=== PATIENT | female | born 2000 | race Caucasian/White ===

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

== ENCOUNTER 2020-12-01 16:12 | Emergency (ER) | payer MEDICAID ==
[2020-12-01 18:01] VITALS: BP 112/61
== END 2020-12-01 20:43 | disposition left against medical advice (07) ==
LOC: ED 16:12
DX: O26.891 Other specified pregnancy related conditions, first trimester (principal); Z3A.12 12 weeks gestation of pregnancy; Z53.21 Procedure and treatment not carried out due to patient leaving prior to being seen by health care provider

== ENCOUNTER 2021-02-16 19:50 | Outpatient (CLI) | payer MEDICAID ==
[2021-02-16 21:33] LABS: Bilirubin,Urine NEG (Negative); Blood,Urine NEG (Negative); Color,Urine Yellow (Yellow); Mucus,Urine FEW /HPF; Protein,Urine <15 mg/dL mg/dL (Negative); Urobilinogen,Urine < 2.0 mg/dL (<2.0)
[2021-02-16] MEDS ORDERED: ONDANSETRON 4 MG/2 ML INJ IV ONE (21:53)
[2021-02-16] MEDS ORDERED: ALUM-MAG HYDROXIDE-SIMETHICONE 200-200-20MG/5ML ORAL LIQD 30 ML PO PRN (21:53)
[2021-02-16] MEDS ORDERED: LACTATED RINGERS 500 ML IV ONE (21:54)
--- NOTE | 2021-02-16 22:24 | Ultrasound Report ---
ULTRASOUND OBSTETRIC LIMITED INDICATION / CLINICAL INFORMATION: CHECK PLACENTA. Clinical Gestational Age (GA) in weeks, days: 23 weeks 0 days TECHNIQUE: Transabdominal. COMPARISON: None available. FINDINGS: PRESENTATION: Breech. ADDITIONAL FINDINGS: Grade 1 placenta. Posterior placenta. No evidence of abruption. BREATHING MOVEMENT = 2 GROSS BODY MOVEMENT = 2 TONE = 2 QUALITATIVE AMNIOTIC FLUID VOLUME = 2 TOTAL BIOPHYSICAL SCORE = 8/8 HEART RATE (beats per minute): 159 IMPRESSION: 1. Biophysical Score = 8/8 2. No evidence of placental abruption. 3. Breech position. Signer Name: Vic Alicea MD Signed: 02/16/2021 10:20 PM Workstation Name: [id number]
[2021-02-17 08:00] VITALS: BP 127/74
== END 2021-02-16 23:24 | disposition home or self-care (01) ==
LOC: SPVWC 19:50 → APU 19:51 → SPVWC 23:24
PROVIDERS: ATTEND Obstetrics & Gynecology
DX: Z34.92 Encounter for supervision of normal pregnancy, unspecified, second trimester (principal); Z3A.23 23 weeks gestation of pregnancy
CPT/HCPCS: 59025; 76815; 76819; 81001; 96360; J2405; J7120; J3490

== ENCOUNTER 2021-05-11 13:43 | Outpatient (CLI) | payer MEDICAID ==
[2021-05-11 14:26] VITALS: BP 97/63
[2021-05-11] MEDS ORDERED: LACTATED RINGERS 500 ML IV ONE (19:07)
--- NOTE | 2021-05-12 06:48 | Ultrasound Report ---
OB ultrasound Biophysical profile INDICATION: well-being FINDINGS: Biophysical profile measures 8 out of 8. heart rate 142 bpm. TOMÁS measures 7.3 cm. Sin gle live intrauterine in cephalic position. IMPRESSION: Single live intrauterine in cephalic position. Normal biophysical profile. TOMÁS measures 7.3 cm. Signer Name: Juan Miguel Araiza MD Signed: 05/12/2021 6:44 AM Workstation Name: [id number]
== END 2021-05-11 18:15 | disposition home or self-care (01) ==
LOC: TRG 13:43 → APU 13:44 → TRG 18:15
PROVIDERS: ATTEND Obstetrics & Gynecology
DX: Z34.93 Encounter for supervision of normal pregnancy, unspecified, third trimester (principal); Z3A.35 35 weeks gestation of pregnancy
CPT/HCPCS: 36415; 59025; 76815; 76819; 84112

== ENCOUNTER 2021-06-07 20:03 | Outpatient (CLI) | payer MEDICAID ==
[2021-06-07 22:18] LABS: Bacteria,Urine 2+ /HPF (Negative); Bilirubin,Urine NEG (Negative); Blood,Urine NEG (Negative); Color,Urine Yellow (Yellow); Protein,Urine <15 mg/dL mg/dL (Negative); Urobilinogen,Urine < 2.0 mg/dL (<2.0)
[2021-06-07 23:03] VITALS: BP 108/72
== END 2021-06-07 22:43 | disposition home or self-care (01) ==
LOC: TRG 20:03 → APU 20:04 → TRG 22:43
PROVIDERS: ATTEND Obstetrics & Gynecology
DX: Z34.93 Encounter for supervision of normal pregnancy, unspecified, third trimester (principal); Z3A.38 38 weeks gestation of pregnancy
CPT/HCPCS: 59025; 81001

== ENCOUNTER 2021-06-15 11:22 | Inpatient (IN) | payer MEDICAID ==
[2021-06-15] MEDS: LACTATED RINGERS 1,000 ML IV SCH ×3 (13:54→23:15)
[2021-06-15] MEDS ORDERED: ePHEDrine SULFATE 50 MG/1 ML INJ IV PRN ×2 (14:00→23:00)
[2021-06-15] MEDS ORDERED: BUTORPHANOL 2 MG/1 ML INJ IV PRN ×2 (14:00)
[2021-06-15] MEDS ORDERED: LIDOCAINE (2%) 20 MG/1 ML VIAL 20 ML MDV INFILTRATI NR (14:00)
[2021-06-15] MEDS ORDERED: fentaNYL 100 MCG/2 ML INJ IV PRN (14:00)
[2021-06-15] MEDS ORDERED: ACETAMINOPHEN 325 MG TAB PO PRN (14:00)
[2021-06-15] MEDS ORDERED: OXYTOCIN DRIP 30 UNITS/500 ML BAG IV SCH ×2 (14:00)
--- NOTE | 2021-06-15 14:04 | History and Physical Report ---
History of Present Illness Date of examination: 06/15/21 Date of admission: 06/15/2021 Chief complaint: Presents for induction of labor due to having BPP of 4/8 at office today. History of present illness: Early entry to care; 1st trimester complicated by +Chlamydia (treated and DARWIN is Negative), Vitamin D Deficiency (PO supplementation); 2nd trimester complicated by UTI (treated with Macrobid); and HAs (Tylenol); 3rd trimester complicated by HAs (Fioricet), and fatigue. 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 Family/Genetic History: diabetes (Mother MGF), hypertension (Mother, MGM, PGM, Aunt) Social history: no significant social history, single - Obstetrical History Expected Date of Delivery: 06/15/21 Actual Gestation: 40 Week(s) 0 Day(s) : 2 Para: 1 Hx # Term Pregnancies: 1 Number of Living Children: 1 #1 Infant Gender: Female year: Birthweight: 3.402 kg Method of Delivery: Vaginal Gestational age at delivery: 41 Complications: none Medications and Allergies Allergies Allergy/AdvReac Type Severity Reaction Status Date / Time No Known Allergies Allergy Verified 06/05/17 21:50 Home Medications Medication Instructions Recorded Confirmed Last Taken Type Hyoscyamine Subl [Levsin Sl] 0.125 mg SL Q4HR PRN #5 tablet 06/04/14 08/06/17 Unknown Rx Ondansetron [Zofran Odt] 4 mg PO Q4H #7 tab.rapdis 06/04/14 08/06/17 Unknown Rx Active Meds: Active Medications Lactated Ringer's (Lactated Ringers) 1,000 mls @ 125 mls/hr IV DIRECT STEPHEN Last Admin: 06/15/21 13:54 Dose: 125 mls/hr Review of Systems All systems: negative - Vital Signs Vital signs: Vital Signs Pulse BP Pulse Ox 89 113/69 97 06/15/21 11:42 06/15/21 11:42 06/15/21 11:42 Temp Pulse Resp BP Pulse Ox 97.9 F 75 113/69 98 06/15/21 11:54 06/15/21 13:56 06/15/21 11:42 06/15/21 13:56 - Physical Exam Breasts: Positive: normal Cardiovascular: Regular rate Lungs: Positive: Clear to auscultation, Normal air movement Abdomen: Positive: normal appearance, soft, normal bowel sounds Genitourinary (Female): Positive: normal external genitalia, normal perenium Vagina: Positive: normal moisture Uterus: Positive: enlarged Anus/Rectum: Positive: normal perianal skin - Obstetrical FHR: category 1 Uterine Contraction Monitor Mode: External Cervical Dilatation: 3 (Vtx; Intact) Cervical Effacement Percentage: 60 station: -3 Uterine Contraction Pattern: Irregular Uterine Tone Measurement Phase: Resting Uterine Contraction Intensity: Mild Results All other labs normal. Assessment and Plan A: IUP @ 40 Weeks Category I Tracing Non-Reassuring Testing (BPP: 07/24) Oligohydramnios Maternal Obesity GBS Negative P: Admit to L&D Per Routine Orders Pitocin Induction
[2021-06-15 14:12] LABS: Hematocrit 39.9 % (30.3-42.9); Hemoglobin 13.3 gm/dl (10.1-14.3); Mean Corpuscular HGB Conc 33 % (30-34); Mean Corpuscular Volume 84 fl (79-97); Platelet Count 282 K/mm3 (140-440); Red Blood Count 4.76 M/mm3 (3.65-5.03); Red Cell Distribution Width 14.9 % (13.2-15.2)
[2021-06-15] MEDS ORDERED: CARBOPROST TROMETHAMINE 250 MCG/1 ML INJ IM PRN (15:00)
[2021-06-15] MEDS ORDERED: OXYTOCIN 10 UNIT/1 ML INJ IM PRN (15:00)
[2021-06-15] MEDS ORDERED: LOPERAMIDE 2 MG CAP PO PRN (15:00)
[2021-06-15] MEDS ORDERED: NALOXONE 0.4 MG/1 ML INJ IV PRN (15:00)
[2021-06-15] MEDS ORDERED: TERBUTALINE 1 MG/1 ML INJ SUB-Q PRN (15:00)
[2021-06-15] MEDS ORDERED: miSOPROStol 200 MCG TAB PR PRN (15:00)
[2021-06-15] MEDS ORDERED: ONDANSETRON 4 MG/2 ML INJ IV PRN (15:00)
[2021-06-15] MEDS ORDERED: MINERAL OIL 30 ML ORAL LIQD PO PRN (22:00)
[2021-06-15] MEDS ORDERED: NALOXONE 2 MG/2 ML INJ IV PRN (23:00)
--- NOTE | 2021-06-15 23:00 | Anesthesia Consultation ---
Anesthesia Consult and Med Hx Date of service: 06/15/21 - Airway Anesthetic Teeth Evaluation: Good ROM Head & Neck: Adequate Mental/Hyoid Distance: Adequate Mallampati Class: Class II Intubation Access Assessment: Probably Good - Pulmonary Exam CTA: Yes - Cardiac Exam Cardiac Exam: RRR - Pre-Operative Health Status ASA Pre-Surgery Classification: ASA2 Proposed Anesthetic Plan: Epidural - Pulmonary Hx Asthma: No COPD: No Hx Pneumonia: No - Cardiovascular System Hx Hypertension: No - Central Nervous System Hx Seizures: No Hx Psychiatric Problems: No - Gastrointestinal Hx Gastroesophageal Reflux Disease: No - Endocrine Hx Renal Disease: No Hx End Stage Renal Disease: No Hx Insulin Dependent Diabetes: No Hx Non-Insulin Dependent Diabetes: No Hx Hypothyroidism: No Hx Hyperthyroidism: No - Hematic Hx Anemia: No Hx Sickle Cell Disease: No - Other Systems Hx Alcohol Use: No Hx Substance Use: No Hx Obesity: Yes
--- NOTE | 2021-06-15 23:49 | Progress Note ---
Labor Epidural - Labor Epidural Start Time: 23:25 Stop Time: 23:39 Performed by:: MEDARDO BILLINGSLEY Procedure: Patient is requesting epidural for labor pain. H&P and labs reviewed. Procedure explained, questions answered, consent obtained. Patient placed in sitting position with monitors applied. Timeout performed immediately before start of procedure. Prep/drape in usual sterile fashion. Skin localized 3 mL 1% lidocaine at L[3]-L[4] interspace. 17-gauge Touhy epidural needle advanced to SRAVANI with saline at [8] cm. No blood/CSF noted via epidural needle. Epidural catheter advanced to [12] cm. Negative aspiration for blood and CSF via catheter, negative response to test dose 3 ml 1.5% lidocaine w/ Epi. Sterile dressing applied followed by tape reinforcement. Patient tolerated procedure well. No immediate complications noted.
[2021-06-16] MEDS: fentaNYL-BUPIV 2 MCG/ML-0.125% 200 MCG/100 ML BAG EPIDURAL SCH ×2 (00:33→08:26)
[2021-06-16] MEDS: LACTATED RINGERS 1,000 ML IV SCH ×2 (05:20→07:12)
[2021-06-16] MEDS ORDERED: SODIUM CHLORIDE 0.9% 1000 ML 1,000 ML ONE (06:56)
--- NOTE | 2021-06-16 07:41 | Event Note ---
Date: 06/16/21 CC: IOL HPI: 20 y/o at 40-1/7 weeks undergoing IOL as BPP=4/8 yesterday. Membranes are ruptured. On Pitocin. O: EFM= category 2. TOCO= q 5 min SVE= 5/90%/-2. IUPC and FSE placed. IMP: 1.) 40 weeks 2.) BPP= 4/8 yesterday 3.) IOL PLAN: 1.) Continue Pitocin per protocol. 2.) Rx amnioinfusion.
[2021-06-16] MEDS ORDERED: SODIUM CHLORIDE 0.9% 1000 ML 1,000 ML VG SCH ×2 (08:00)
--- NOTE | 2021-06-16 09:12 | Event Note ---
Date: 06/16/21 Cat 2 racing Amnioinfusion running Oxyocin on hold If no progress or trasing does not improve in one hour will proceed with operative delivery Zackery Green MD
[2021-06-16] MEDS ORDERED: METOCLOPRAMIDE 10 MG/2 ML INJ ONE (10:33)
[2021-06-16] MEDS ORDERED: BICITRA ORAL LIQD 30ML ONE (10:33)
[2021-06-16] MEDS ORDERED: FAMOTIDINE 20 MG/2 ML INJ IV ONE ×2 (10:34→10:43)
[2021-06-16] MEDS ORDERED: ceFAZolin/Water 2 GM/20 ML 2 GM/20 ML SYRINGE IV ONE (10:38)
[2021-06-16] MEDS ORDERED: LIDOCAINE 2%/EPINEPHRINE 1:200,000 VIAL (20 ML) INFILTRATI ONE (10:41)
[2021-06-16] MEDS ORDERED: METOCLOPRAMIDE 10 MG/2 ML INJ IV ONE (10:43)
[2021-06-16] MEDS ORDERED: BICITRA ORAL LIQD 30ML PO ONE (10:43)
--- NOTE | 2021-06-16 10:50 | Progress Note ---
Subjective - Subjective Date of service: 06/16/21 Interval history: 9cm/+ve anterior lip swelling prominent pubic arch +ve caput prolonged active phase proceed with operative delivery Informed consent Zackery Green MD Objective - Vital Signs Vital Signs: Vital Signs - 12hr 06/15/21 06/15/21 06/15/21 22:52 22:57 23:02 Temperature Pulse Rate 63 78 69 Respiratory Rate Blood Pressure Blood Pressure [Left] O2 Sat by Pulse 100 100 99 Oximetry O2 Sat by Pulse Oximetry [ Anterior Bilateral Throughout] 06/15/21 06/15/21 06/15/21 23:07 23:12 23:17 Temperature Pulse Rate 70 65 70 Respiratory Rate Blood Pressure Blood Pressure [Left] O2 Sat by Pulse 99 100 99 Oximetry O2 Sat by Pulse Oximetry [ Anterior Bilateral Throughout] 06/15/21 06/15/21 06/15/21 23:21 23:22 23:23 Temperature Pulse Rate 72 73 80 Respiratory Rate Blood Pressure 138/93 Blood Pressure [Left] O2 Sat by Pulse 100 93 Oximetry O2 Sat by Pulse Oximetry [ Anterior Bilateral Throughout] 06/15/21 06/15/21 06/15/21 23:27 23:32 23:37 Temperature Pulse Rate 69 69 74 Respiratory Rate Blood Pressure 110/74 Blood Pressure [Left] O2 Sat by Pulse 97 100 100 Oximetry O2 Sat by Pulse Oximetry [ Anterior Bilateral Throughout] 06/15/21 06/15/21 06/15/21 23:40 23:42 23:47 Temperature Pulse Rate 67 67 68 Respiratory Rate Blood Pressure 117/80 121/79 Blood Pressure [Left] O2 Sat by Pulse 99 99 Oximetry O2 Sat by Pulse Oximetry [ Anterior Bilateral Throughout] 06/15/21 06/15/21 06/15/21 23:49 23:51 23:52 Temperature Pulse Rate 67 61 65 Respiratory Rate Blood Pressure 109/55 108/59 Blood Pressure [Left] O2 Sat by Pulse 100 Oximetry O2 Sat by Pulse Oximetry [ Anterior Bilateral Throughout] 06/15/21 06/15/21 06/15/21 23:54 23:57 23:58 Temperature Pulse Rate 68 64 63 Respiratory Rate Blood Pressure 116/70 103/57 Blood Pressure [Left] O2 Sat by Pulse 100 Oximetry O2 Sat by Pulse Oximetry [ Anterior Bilateral Throughout] 06/16/21 06/16/21 06/16/21 00:00 00:02 00:03 Temperature Pulse Rate 61 60 62 Respiratory Rate Blood Pressure 105/66 107/70 Blood Pressure [Left] O2 Sat by Pulse 100 Oximetry O2 Sat by Pulse Oximetry [ Anterior Bilateral Throughout] 06/16/21 06/16/21 06/16/21 00:06 00:07 00:09 Temperature Pulse Rate 59 L 60 58 L Respiratory Rate Blood Pressure 104/64 104/70 Blood Pressure [Left] O2 Sat by Pulse 98 Oximetry O2 Sat by Pulse Oximetry [ Anterior Bilateral Throughout] 06/16/21 06/16/21 06/16/21 00:12 00:15 00:17 Temperature Pulse Rate 62 58 L 59 L Respiratory Rate Blood Pressure 104/66 96/62 Blood Pressure [Left] O2 Sat by Pulse 98 98 Oximetry O2 Sat by Pulse Oximetry [ Anterior Bilateral Throughout] 06/16/21 06/16/21 06/16/21 00:18 00:21 00:22 Temperature Pulse Rate 57 L 51 L 55 L Respiratory Rate Blood Pressure 100/67 102/70 Blood Pressure [Left] O2 Sat by Pulse 98 Oximetry O2 Sat by Pulse Oximetry [ Anterior Bilateral Throughout] 06/16/21 06/16/21 06/16/21 00:27 00:32 00:37 Temperature Pulse Rate 55 L 60 57 L Respiratory Rate Blood Pressure Blood Pressure [Left] O2 Sat by Pulse 98 98 99 Oximetry O2 Sat by Pulse Oximetry [ Anterior Bilateral Throughout] 06/16/21 06/16/21 06/16/21 00:42 00:47 00:52 Temperature Pulse Rate 58 L 61 62 Respiratory Rate Blood Pressure Blood Pressure [Left] O2 Sat by Pulse 97 97 97 Oximetry O2 Sat by Pulse Oximetry [ Anterior Bilateral Throughout] 06/16/21 06/16/21 06/16/21 00:53 00:57 01:00 Temperature 97.8 F Pulse Rate 71 65 Respiratory Rate Blood Pressure 97/60 Blood Pressure [Left] O2 Sat by Pulse 99 Oximetry O2 Sat by Pulse Oximetry [ Anterior Bilateral Throughout] 06/16/21 06/16/21 06/16/21 01:02 01:07 01:12 Temperature Pulse Rate 60 63 64 Respiratory Rate Blood Pressure Blood Pressure [Left] O2 Sat by Pulse 97 97 97 Oximetry O2 Sat by Pulse Oximetry [ Anterior Bilateral Throughout] 06/16/21 06/16/21 06/16/21 01:17 01:22 01:27 Temperature Pulse Rate 61 68 65 Respiratory Rate Blood Pressure 99/64 Blood Pressure [Left] O2 Sat by Pulse 98 98 98 Oximetry O2 Sat by Pulse Oximetry [ Anterior Bilateral Throughout] 06/16/21 06/16/21 06/16/21 01:32 01:37 01:42 Temperature Pulse Rate 60 63 65 Respiratory Rate Blood Pressure Blood Pressure [Left] O2 Sat by Pulse 98 98 99 Oximetry O2 Sat by Pulse Oximetry [ Anterior Bilateral Throughout] 06/16/21 06/16/21 06/16/21 01:47 01:52 01:57 Temperature Pulse Rate 63 78 68 Respiratory Rate Blood Pressure 86/51 Blood Pressure [Left] O2 Sat by Pulse 98 99 99 Oximetry O2 Sat by Pulse Oximetry [ Anterior Bilateral Throughout] 06/16/21 06/16/21 06/16/21 02:02 02:07 02:12 Temperature Pulse Rate 73 63 61 Respiratory Rate Blood Pressure Blood Pressure [Left] O2 Sat by Pulse 100 99 99 Oximetry O2 Sat by Pulse Oximetry [ Anterior Bilateral Throughout] 06/16/21 06/16/21 06/16/21 02:17 02:22 02:27 Temperature Pulse Rate 70 63 66 Respiratory Rate Blood Pressure 91/55 Blood Pressure [Left] O2 Sat by Pulse 98 99 99 Oximetry O2 Sat by Pulse Oximetry [ Anterior Bilateral Throughout] 06/16/21 06/16/21 06/16/21 02:32 02:37 02:42 Temperature Pulse Rate 66 68 60 Respiratory Rate Blood Pressure Blood Pressure [Left] O2 Sat by Pulse 99 99 98 Oximetry O2 Sat by Pulse Oximetry [ Anterior Bilateral Throughout] 06/16/21 06/16/21 06/16/21 02:47 02:52 02:53 Temperature Pulse Rate 66 66 67 Respiratory Rate Blood Pressure 83/52 Blood Pressure [Left] O2 Sat by Pulse 98 99 Oximetry O2 Sat by Pulse Oximetry [ Anterior Bilateral Throughout] 06/16/21 06/16/21 06/16/21 02:57 03:02 03:07 Temperature Pulse Rate 73 65 66 Respiratory Rate Blood Pressure 89/55 Blood Pressure [Left] O2 Sat by Pulse 98 99 98 Oximetry O2 Sat by Pulse Oximetry [ Anterior Bilateral Throughout] 06/16/21 06/16/21 06/16/21 03:12 03:17 03:22 Temperature Pulse Rate 75 73 68 Respiratory Rate Blood Pressure Blood Pressure [Left] O2 Sat by Pulse 97 97 97 Oximetry O2 Sat by Pulse Oximetry [ Anterior Bilateral Throughout] 06/16/21 06/16/21 06/16/21 03:23 03:24 03:27 Temperature Pulse Rate 67 88 76 Respiratory Rate Blood Pressure 83/50 88/56 Blood Pressure [Left] O2 Sat by Pulse 98 Oximetry O2 Sat by Pulse Oximetry [ Anterior Bilateral Throughout] 06/16/21 06/16/21 06/16/21 03:32 03:37 03:42 Temperature Pulse Rate 80 68 69 Respiratory Rate Blood Pressure Blood Pressure [Left] O2 Sat by Pulse 98 98 99 Oximetry O2 Sat by Pulse Oximetry [ Anterior Bilateral Throughout] 06/16/21 06/16/21 06/16/21 03:44 03:47 03:52 Temperature Pulse Rate 69 74 67 Respiratory Rate Blood Pressure 92/62 Blood Pressure [Left] O2 Sat by Pulse 99 98 Oximetry O2 Sat by Pulse Oximetry [ Anterior Bilateral Throughout] 06/16/21 06/16/21 06/16/21 03:57 03:58 04:02 Temperature Pulse Rate 70 64 103 H Respiratory Rate Blood Pressure 94/62 Blood Pressure [Left] O2 Sat by Pulse 98 97 Oximetry O2 Sat by Pulse Oximetry [ Anterior Bilateral Throughout] 06/16/21 06/16/21 06/16/21 04:07 04:12 04:13 Temperature Pulse Rate 80 62 58 L Respiratory Rate Blood Pressure 92/64 Blood Pressure [Left] O2 Sat by Pulse 97 98 Oximetry O2 Sat by Pulse Oximetry [ Anterior Bilateral Throughout] 06/16/21 06/16/21 06/16/21 04:17 04:22 04:27 Temperature Pulse Rate 67 61 67 Respiratory Rate Blood Pressure Blood Pressure [Left] O2 Sat by Pulse 99 99 99 Oximetry O2 Sat by Pulse Oximetry [ Anterior Bilateral Throughout] 06/16/21 06/16/21 06/16/21 04:28 04:32 04:37 Temperature Pulse Rate 63 61 61 Respiratory Rate Blood Pressure 100/69 Blood Pressure [Left] O2 Sat by Pulse 99 99 Oximetry O2 Sat by Pulse Oximetry [ Anterior Bilateral Throughout] 06/16/21 06/16/21 06/16/21 04:42 04:43 04:47 Temperature Pulse Rate 67 60 60 Respiratory Rate Blood Pressure 96/66 Blood Pressure [Left] O2 Sat by Pulse 98 99 Oximetry O2 Sat by Pulse Oximetry [ Anterior Bilateral Throughout] 06/16/21 06/16/21 06/16/21 04:52 04:57 04:58 Temperature Pulse Rate 67 65 66 Respiratory Rate Blood Pressure 100/65 Blood Pressure [Left] O2 Sat by Pulse 98 98 Oximetry O2 Sat by Pulse Oximetry [ Anterior Bilateral Throughout] 06/16/21 06/16/21 06/16/21 05:02 05:07 05:12 Temperature Pulse Rate 68 65 77 Respiratory Rate Blood Pressure Blood Pressure [Left] O2 Sat by Pulse 98 98 98 Oximetry O2 Sat by Pulse Oximetry [ Anterior Bilateral Throughout] 06/16/21 06/16/21 06/16/21 05:13 05:17 05:18 Temperature Pulse Rate 75 66 103 H Respiratory Rate Blood Pressure 96/59 Blood Pressure [Left] O2 Sat by Pulse 99 91 Oximetry O2 Sat by Pulse Oximetry [ Anterior Bilateral Throughout] 06/16/21 06/16/21 06/16/21 05:22 05:23 05:27 Temperature 97.7 F Pulse Rate 78 67 Respiratory 18 Rate Blood Pressure Blood Pressure [Left] O2 Sat by Pulse 97 97 99 Oximetry O2 Sat by Pulse Oximetry [ Anterior Bilateral Throughout] 06/16/21 06/16/21 06/16/21 05:28 05:32 05:37 Temperature Pulse Rate 60 77 65 Respiratory Rate Blood Pressure 115/75 Blood Pressure [Left] O2 Sat by Pulse 99 97 Oximetry O2 Sat by Pulse Oximetry [ Anterior Bilateral Throughout] 06/16/21 06/16/21 06/16/21 05:42 05:47 05:52 Temperature Pulse Rate 78 70 71 Respiratory Rate Blood Pressure Blood Pressure [Left] O2 Sat by Pulse 98 98 98 Oximetry O2 Sat by Pulse Oximetry [ Anterior Bilateral Throughout] 06/16/21 06/16/21 06/16/21 05:57 06:02 06:07 Temperature Pulse Rate 70 70 73 Respiratory Rate Blood Pressure Blood Pressure [Left] O2 Sat by Pulse 98 97 98 Oximetry O2 Sat by Pulse Oximetry [ Anterior Bilateral Throughout] 06/16/21 06/16/21 06/16/21 06:12 06:17 06:22 Temperature Pulse Rate 74 86 79 Respiratory Rate Blood Pressure Blood Pressure [Left] O2 Sat by Pulse 98 95 99 Oximetry O2 Sat by Pulse Oximetry [ Anterior Bilateral Throughout] 06/16/21 06/16/21 06/16/21 06:27 06:32 06:37 Temperature Pulse Rate 69 74 76 Respiratory Rate Blood Pressure Blood Pressure [Left] O2 Sat by Pulse 98 97 97 Oximetry O2 Sat by Pulse Oximetry [ Anterior Bilateral Throughout] 06/16/21 06/16/21 06/16/21 06:42 06:47 06:52 Temperature Pulse Rate 82 85 76 Respiratory Rate Blood Pressure 108/76 Blood Pressure [Left] O2 Sat by Pulse 99 97 99 Oximetry O2 Sat by Pulse Oximetry [ Anterior Bilateral Throughout] 06/16/21 06/16/21 06/16/21 06:57 07:02 07:07 Temperature Pulse Rate 82 72 87 Respiratory Rate Blood Pressure Blood Pressure [Left] O2 Sat by Pulse 97 99 97 Oximetry O2 Sat by Pulse Oximetry [ Anterior Bilateral Throughout] 06/16/21 06/16/21 06/16/21 07:12 07:13 07:17 Temperature Pulse Rate 72 70 Respiratory Rate Blood Pressure Blood Pressure [Left] O2 Sat by Pulse 99 98 Oximetry O2 Sat by Pulse 99 Oximetry [ Anterior Bilateral Throughout] 06/16/21 06/16/21 06/16/21 07:18 07:22 07:27 Temperature 98.5 F Pulse Rate 78 78 76 Respiratory 14 Rate Blood Pressure 136/90 Blood Pressure 136/90 [Left] O2 Sat by Pulse 99 98 99 Oximetry O2 Sat by Pulse Oximetry [ Anterior Bilateral Throughout] 06/16/21 06/16/21 06/16/21 07:32 07:37 07:41 Temperature Pulse Rate 71 71 76 Respiratory Rate Blood Pressure 124/83 Blood Pressure [Left] O2 Sat by Pulse 98 99 Oximetry O2 Sat by Pulse Oximetry [ Anterior Bilateral Throughout] 06/16/21 06/16/21 06/16/21 07:42 07:47 07:52 Temperature Pulse Rate 75 75 73 Respiratory Rate Blood Pressure Blood Pressure [Left] O2 Sat by Pulse 98 98 99 Oximetry O2 Sat by Pulse Oximetry [ Anterior Bilateral Throughout] 06/16/21 06/16/21 06/16/21 07:57 08:02 08:07 Temperature Pulse Rate 85 112 H 126 H Respiratory Rate Blood Pressure Blood Pressure [Left] O2 Sat by Pulse 99 96 96 Oximetry O2 Sat by Pulse Oximetry [ Anterior Bilateral Throughout] 06/16/21 06/16/2122 08:12 08:17 08:22 Temperature Pulse Rate 98 H 119 H 143 H Respiratory Rate Blood Pressure Blood Pressure [Left] O2 Sat by Pulse 97 97 98 Oximetry O2 Sat by Pulse Oximetry [ Anterior Bilateral Throughout] 06/16/21 06/16/21 06/16/21 08:27 08:31 08:32 Temperature Pulse Rate 139 H 136 H 123 H Respiratory Rate Blood Pressure Blood Pressure [Left] O2 Sat by Pulse 96 93 96 Oximetry O2 Sat by Pulse Oximetry [ Anterior Bilateral Throughout] 06/16/21 06/16/21 06/16/21 08:37 08:42 08:43 Temperature Pulse Rate 120 H 98 H 93 H Respiratory Rate Blood Pressure 132/74 Blood Pressure [Left] O2 Sat by Pulse 97 97 Oximetry O2 Sat by Pulse Oximetry [ Anterior Bilateral Throughout] 06/16/21 06/16/21 06/16/21 08:47 08:52 08:57 Temperature Pulse Rate 96 H 96 H 95 H Respiratory Rate Blood Pressure Blood Pressure [Left] O2 Sat by Pulse 96 97 96 Oximetry O2 Sat by Pulse Oximetry [ Anterior Bilateral Throughout] 06/16/21 06/16/21 06/16/21 09:02 09:07 09:12 Temperature Pulse Rate 108 H 115 H 106 H Respiratory Rate Blood Pressure Blood Pressure [Left] O2 Sat by Pulse 96 96 98 Oximetry O2 Sat by Pulse Oximetry [ Anterior Bilateral Throughout] 06/16/21 06/16/21 06/16/21 09:17 09:19 09:20 Temperature Pulse Rate 107 H 100 H 97 H Respiratory Rate Blood Pressure 123/72 Blood Pressure [Left] O2 Sat by Pulse 97 94 Oximetry O2 Sat by Pulse Oximetry [ Anterior Bilateral Throughout] 06/16/21 06/16/21 06/16/21 09:22 09:27 09:32 Temperature Pulse Rate 116 H 102 H 103 H Respiratory Rate Blood Pressure Blood Pressure [Left] O2 Sat by Pulse 97 97 96 Oximetry O2 Sat by Pulse Oximetry [ Anterior Bilateral Throughout] 06/16/21 06/16/21 06/16/21 09:37 09:42 09:47 Temperature Pulse Rate 133 H 137 H 135 H Respiratory Rate Blood Pressure Blood Pressure [Left] O2 Sat by Pulse 96 97 97 Oximetry O2 Sat by Pulse Oximetry [ Anterior Bilateral Throughout] 06/16/21 06/16/2122 09:48 09:53 09:58 Temperature Pulse Rate 125 H 133 H 154 H Respiratory Rate Blood Pressure 105/58 Blood Pressure [Left] O2 Sat by Pulse 97 99 Oximetry O2 Sat by Pulse Oximetry [ Anterior Bilateral Throughout] 06/16/21 06/16/21 06/16/21 10:03 10:08 10:13 Temperature Pulse Rate 138 H 119 H 110 H Respiratory Rate Blood Pressure Blood Pressure [Left] O2 Sat by Pulse 99 98 96 Oximetry O2 Sat by Pulse Oximetry [ Anterior Bilateral Throughout] 06/16/21 06/16/21 06/16/21 10:14 10:18 10:19 Temperature Pulse Rate 110 H 112 H 121 H Respiratory Rate Blood Pressure Blood Pressure [Left] O2 Sat by Pulse 92 98 81 L Oximetry O2 Sat by Pulse Oximetry [ Anterior Bilateral Throughout] 06/16/21 06/16/21 06/16/21 10:23 10:28 10:33 Temperature Pulse Rate 131 H 121 H 122 H Respiratory Rate Blood Pressure Blood Pressure [Left] O2 Sat by Pulse 98 99 97 Oximetry O2 Sat by Pulse Oximetry [ Anterior Bilateral Throughout] 06/16/21 06/16/21 10:38 10:43 Temperature Pulse Rate 122 H 118 H Respiratory Rate Blood Pressure Blood Pressure [Left] O2 Sat by Pulse 98 97 Oximetry O2 Sat by Pulse Oximetry [ Anterior Bilateral Throughout] - Labs Labs: Laboratory Results - last 24 hr 06/15/21 06/15/21 13:30 13:30 WBC 7.4 RBC 4.76 Hgb 13.3 Hct 39.9 MCV 84 MCH 28 MCHC 33 RDW 14.9 Plt Count 282 Blood Type A POSITIVE Antibody Screen Negative
[2021-06-16] MEDS ORDERED: ceFAZolin/Water 2 GM/20 ML 2 GM/20 ML SYRINGE IV NR (11:00)
[2021-06-16] MEDS ORDERED: ONDANSETRON 4 MG/2 ML INJ ONE (11:28)
[2021-06-16] MEDS ORDERED: OXYTOCIN 10 UNIT/1 ML INJ ONE (11:32)
[2021-06-16] MEDS ORDERED: dexAMETHasone 20 MG/5 ML VIAL ONE (11:44)
[2021-06-16] MEDS ORDERED: BUPIVACAINE/PF (0.25%) 2.5 MG/ML 30 ML VIAL INFILTRATI ONE ×2 (11:44)
[2021-06-16] MEDS: METHYLERGONOVINE MALEATE 0.2 MG/ML VIAL IM PRN ×2 (11:45→12:30)
[2021-06-16] MEDS ORDERED: LACTATED RINGERS 1,000 ML ONE (11:56)
--- NOTE | 2021-06-16 13:13 | Procedure Note ---
OB Delivery Note - Delivery Date of Delivery: 06/16/21 Surgeon: JULIANNA FERRER Estimated blood loss: other (1500ml) - Section Preop diagnosis: nonreassuring FHR tracing, other (arrest of descent, suspected chorioamnionitis) section procedure: primary low transverse Disposition: PACU Complications: other ( hemorrhage) Narrative: Preop diagnosis: IUP at 40.1 weeks, arrest of descent, suspected chorioamnionitis, nonreassuring heart tracing Postop diagnosis: Same, delivered Procedure: Primary low transverse section via Pfannenstiel incision Surgeon: Dr. Julianna Ferrer Anesthesia spinal Complications hemorrhage EBL 1500ml IV fluids 1900mL Urine output 200 mL, clear Drains Mercado to gravity Findings: Viable female with weight 2680gms and normal uterus tubes and ovaries bilaterally Procedure: Patient was consented in room 2021, taken to the operating room where she received excellent spinal anesthesia. She was then placed in the dorsal supine position with a leftward tilt. The abdomen was prepped and draped in a sterile fashion, and a timeout was verified. Adequate anesthesia was confirmed prior to the skin incision. A Pfannenstiel skin incision was made with a scalpel taken down to the underlying structures and the fascia was incised in the midline. The incision was extended laterally with curved Palomino scissors, the superior and inferior aspects of the fascial incisions were grasped with Sofy clamps and the rectus muscles dissected sharply. The abdomen was entered bluntly in the midline carried down inferiorly with good visualization of the bladder. The vesicouterine peritoneum was tented with Sudanese forceps and incised in the midline with Metzenbaum scissors and the vesicouterine peritoneum taken down sharply. The uterine incision was then made sharply with a scalpel. The inferior and superior aspect of the uterine incisions were extended bluntly, the baby's head was delivered atraumatically. The remainder of the delivery was uncomplicated, no nuchal cord. The cord was clamped and cut and baby handed to waiting NICU team. An intact placenta with three-vessel cord delivered manually. The uterus was then cleared of all clots and debris and the uterus exteriorized. The uterine incision was closed in 2 layers of 0 vicryl with excellent hemostasis. The abdomen was then irrigated with warm normal saline and the uterus placed back into the abdomen atraumatically. A second look at the uterine incision assured hemostasis. The peritoneum was closed with 3-0 Vicryl, the rectus muscles approximated with 3-0 Vicryl, and the fascia closed with 0 Vicryl in the usual fashion. The subcuticular structures were closed with interrupted sutures of 3-0 Vicryl and the skin closed with 4-0 Monocryl. A pressure dressing was applied. All sponge needle and instrument counts were correct x2. EBL 800 mL Had a hemorrhage of approximately 700 cc at the completion of the procedure: Bimanual exam revealed a firm fundus with clots in the cervix: Patient given a 2nd dose of Methergine 0.2 mg IM: There was no subsequent vaginal bleeding noted. There were no additional complications. Mom and baby stable to PACU. Placenta sent to pathology. Zackery Ferrer MD
[2021-06-16] MEDS ORDERED: IBUPROFEN 600 MG TAB PO PRN (13:15)
[2021-06-16] MEDS ORDERED: LANOLIN/ZINC/DIMETHICONE (LANSINOH) 7 GM TP PRN (13:15)
[2021-06-16] MEDS ORDERED: MAGNESIUM HYDROXIDE (MOM) ORAL LIQD UDC PO PRN (13:15)
[2021-06-16] MEDS ORDERED: HYDROCORTISONE 25 MG RECTAL SUPP PR PRN (13:15)
[2021-06-16] MEDS ORDERED: NALOXONE 0.4 MG/1 ML INJ IV PRN (14:00)
[2021-06-16] MEDS ORDERED: HYDROcodone/ACETAMINOPHEN 5-325 MG TAB PO PRN (14:00)
[2021-06-16] MEDS ORDERED: WITCH HAZEL/ GLYCERIN PAD TP PRN (14:00)
[2021-06-16] MEDS ORDERED: MORPHINE 2 MG/1 ML INJ IV PRN (14:00)
[2021-06-16] MEDS ORDERED: KETOROLAC 30 MG/1 ML INJ IV PRN ×2 (14:00)
[2021-06-16] MEDS ORDERED: MORPHINE 4 MG/1 ML INJ IV PRN (14:00)
--- NOTE | 2021-06-16 14:01 | Anesthesia Day of Surgery ---
Anesthesia Day of Surgery - Day of Surgery Patient Examined: Yes Patient H&P Reviewed: Yes Patient is NPO: Yes
[2021-06-16] MEDS ORDERED: SIMETHICONE 80 MG CHEW TAB PO PRN (14:30)
--- NOTE | 2021-06-16 16:05 | Post Anesthesia Evaluation ---
- Post Anesthesia Evaluation Patient Participated: Yes Airway Patent: Yes Stable Respiratory Function: Yes Nausea/Vomiting: No Temp > 96.8F: Yes Pain Manageable: Yes Adequeate Hydration: Yes Anesthesia Complications: No Block Receding Appropriately: Yes Patient on Ventilator: No
[2021-06-16] MEDS: IBUPROFEN 800 MG TAB PO PRN (22:10)
[2021-06-17 02:34] LABS: Hematocrit 26.4 % (30.3-42.9); Hemoglobin 9.3 gm/dl (10.1-14.3)
[2021-06-17] MEDS: oxyCODONE /ACETAMINOPHEN 5-325MG TAB PO PRN ×2 (05:33→23:19)
--- NOTE | 2021-06-17 08:32 | Progress Note ---
Assessment and Plan A: POD #1 Asymptomatic Anemia P: Follow Routine PostOp Orders Continue PO FeSO4 as ordered Infed 100mf IM x 1 dose Subjective - Subjective Date of service: 06/17/21 Interval history: Early entry to care; 1st trimester complicated by +Chlamydia (treated and DARWIN is Negative), Vitamin D Deficiency (PO supplementation); 2nd trimester complicated by UTI (treated with Macrobid); and HAs (Tylenol); 3rd trimester complicated by HAs (Fioricet), and fatigue. Patient reports: appetite normal, voiding normally, pain well controlled, ambulating normally : doing well Objective - Vital Signs Latest vital signs: Vital Signs Temp Pulse Resp BP BP Pulse Ox Pulse Ox 06/17/21 06:33 99 06/17/21 05:33 18 99 06/17/21 04:41 97.9 F 90 50 H 105/69 97 06/17/21 00:27 98.4 F 72 20 104/61 96 06/16/21 23:10 98 06/16/21 22:10 18 98 06/16/21 20:53 98.0 F 77 20 114/73 97 06/16/21 19:30 99 06/16/21 16:16 98.2 F 75 20 120/78 99 06/16/21 14:35 99.4 F 89 20 115/65 100 100 06/16/21 13:40 85 20 111/65 98 06/16/21 13:25 83 17 125/78 98 06/16/21 13:10 86 22 122/80 97 06/16/21 12:55 79 28 H 117/75 98 06/16/21 12:50 79 23 119/70 98 06/16/21 12:45 91 H 23 121/69 98 06/16/21 12:40 99.0 F 83 28 H 116/64 98 06/16/21 10:48 117 H 97 06/16/21 10:43 118 H 97 06/16/21 10:38 122 H 98 06/16/21 10:33 122 H 97 06/16/21 10:28 121 H 99 06/16/21 10:23 131 H 98 06/16/21 10:19 121 H 81 L 06/16/21 10:18 112 H 98 06/16/21 10:14 110 H 92 06/16/21 10:13 110 H 96 06/16/21 10:08 119 H 98 06/16/21 10:03 138 H 99 06/16/21 09:58 154 H 99 06/16/21 09:53 133 H 97 06/16/21 09:48 125 H 105/58 06/16/21 09:47 135 H 97 06/16/21 09:42 137 H 97 06/16/21 09:37 133 H 96 06/16/21 09:32 103 H 96 06/16/21 09:27 102 H 97 06/16/21 09:22 116 H 97 06/16/21 09:20 97 H 94 06/16/21 09:19 100 H 123/72 06/16/21 09:17 107 H 97 06/16/21 09:12 106 H 98 06/16/21 09:07 115 H 96 06/16/21 09:02 108 H 96 06/16/21 08:57 95 H 96 06/16/21 08:52 96 H 97 06/16/21 08:47 96 H 96 06/16/21 08:43 93 H 132/74 06/16/21 08:42 98 H 97 06/16/21 08:37 120 H 97 06/16/21 08:32 123 H 96 06/16/21 08:31 136 H 93 Intake and Output 06/16/21 06/17/21 06/17/21 22:59 06:59 14:59 Intake Total 760 240 Output Total 2800 550 Balance -2040 -310 Intake: Oral 760 Intake, Free Water 240 Output: Urine 2800 550 Indwelling Catheter 1700 Uretheral (Mercado) 1100 300 Void 250 Other: Total, Intake Amount 200 Total, Output Amount 600 250 - Exam Breasts: Present: normal Cardiovascular: Present: Regular rate Lungs: Present: Clear to auscultation, Normal air movement Abdomen: Present: normal appearance, soft, normal bowel sounds Uterus: Present: normal, firm, fundal height below umbilicus Extremities: Present: normal Incision: Present: dry, dressed - Labs Labs: Abnormal lab results 06/17/21 Range/Units 02:18 Hgb 9.3 L D (10.1-14.3) gm/dl Hct 26.4 L D (30.3-42.9) %
[2021-06-17] MEDS ORDERED: IRON DEXTRAN COMPLEX 100 MG/2 ML INJ IM NR (09:00)
[2021-06-17] MEDS: FERROUS SULFATE 325 MG TAB PO SCH (10:59)
[2021-06-17] MEDS: IBUPROFEN 800 MG TAB PO PRN (15:56)
[2021-06-18] MEDS: IBUPROFEN 800 MG TAB PO PRN (05:50)
[2021-06-18] MEDS: FERROUS SULFATE 325 MG TAB PO SCH (10:04)
--- NOTE | 2021-06-18 12:41 | Progress Note ---
Assessment and Plan POD#2 C/Section doing fair, asymptomatic anemia 1. Will repeat cbc now and if stable, will discharge home 2. Routine post op care Subjective Date of service: 06/18/21 Principal diagnosis: POD#2 C/Section Interval history: pt has no complaints. Denies pelvic pain or dysuria. pt has passed flatus. Pain controlled with meds Objective - Constitutional Vitals: Vital Signs - 12hr 06/18/21 06/18/21 06/18/21 05:50 08:03 08:33 Temperature 98.1 F Pulse Rate 97 H Respiratory 20 18 Rate Blood Pressure 99/60 O2 Sat by Pulse 98 Oximetry O2 Sat by Pulse 98 Oximetry [ Anterior Bilateral Throughout] General appearance: Present: no acute distress - Respiratory Respiratory effort: normal - Breasts Breasts: deferred - Cardiovascular Rhythm: regular Extremities: No edema - Gastrointestinal General gastrointestinal: Present: soft, non-tender, other (incision with steristrips in place, old blood stained strips but no drainage or tenderness) - Integumentary Integumentary: warm, dry - Neurologic Neurologic: moves all extremities - Labs CBC & Chem 7: 06/17/21 02:18 Medications & Allergies - Medications Allergies/Adverse Reactions: Allergies No Known Allergies Allergy (Verified 06/05/17 21:50) Home Medications: Home Medications Medication Instructions Recorded Confirmed Last Taken Type Ibuprofen [Motrin] 600 mg PO Q8H PRN #60 tablet 06/18/21 Unknown Rx oxyCODONE /ACETAMINOPHEN [Percocet 1 tab PO Q6HR PRN #20 tablet 06/18/21 Unknown Rx 5/325] Active Medications: Generic Name Dose Route Start Last Admin Trade Name Freq PRN Reason Stop Dose Admin Acetaminophen 650 mg 06/15/21 14:00 Acetaminophen 325 Mg Tab PO Q4H PRN Pain, Mild (1-3) Hydrocodone Bitart/Acetaminophen 1 each 06/16/21 14:00 Hydrocodone/Acetaminophen 5-325 Mg Tab PO Q6H PRN Pain, Moderate (4-6) Butorphanol Tartrate 1 mg 06/15/21 14:00 Butorphanol 2 Mg/1 Ml Inj IV Q2H PRN Pain, Moderate(4-6) LABOR PAIN Butorphanol Tartrate 2 mg 06/15/21 14:00 Butorphanol 2 Mg/1 Ml Inj IV Q2H PRN Pain , Severe (7-10) Carboprost Tromethamine 250 mcg 06/15/21 15:00 Carboprost Tromethamine 250 Mcg/1 Ml Inj IM ONCE PRN Uterine Bleeding Ephedrine Sulfate 10 mg 06/15/21 23:00 06/16/21 03:26 Ephedrine Sulfate 50 Mg/1 Ml Inj IV 10 mg Q2M PRN Administration Hypotension Fentanyl 100 mcg 06/15/21 14:00 Fentanyl 100 Mcg/2 Ml Inj IV Q2H PRN Pain,Severe (7-10) LABOR PAIN Ferrous Sulfate 325 mg 06/17/21 10:00 06/18/21 10:04 Ferrous Sulfate 325 Mg Tab PO 325 mg QDAY STEPHEN Administration Hydrocortisone Acetate 25 mg 06/16/21 13:15 Hydrocortisone 25 Mg Rectal Supp NC BID PRN Hemorrhoids Lactated Ringer's 1,000 mls @ 125 mls/hr 06/15/21 13:45 06/16/21 07:12 Lactated Ringers IV 125 mls/hr DIRECT STEPHEN Administration Oxytocin/Sodium Chloride 30 units in 500 mls @ 2 mls/hr 06/15/21 14:00 20:30 Pitocin/Ns 30 Unit/500ml IV 6 mls/hr TITR STEPHEN 6 mls/hr Titration Protocol Oxytocin/Sodium Chloride 30 units in 500 mls @ 40 mls/hr 06/15/21 14:00 Pitocin/Ns 30 Unit/500ml IV TITR STEPHEN Protocol Fentanyl/Bupivacaine/Sodium Chlor 200 mcg in 100 mls @ 12 mls/hr 06/15/21 23:00 06/16/21 08:26 Fentanyl-Bupiv 2 Mcg/Ml-0.125% EPIDURAL 12 mls/hr TITR STEPHEN Administration Protocol Sodium Chloride 1,000 mls @ 0 mls/hr 06/16/21 08:00 06/16/21 08:45 Nacl 0.9% 1000 Ml VG 80 mls/hr DIRECT STEPHEN Administration As Directed Sodium Chloride 1,000 mls @ 80 mls/hr 06/16/21 08:00 Nacl 0.9% 1000 Ml VG DIRECT STEPHEN Ibuprofen 600 mg 06/16/21 13:15 Ibuprofen 600 Mg Tab PO Q6H PRN Pain, Mild (1-3) Ibuprofen 800 mg 06/16/21 13:15 06/18/21 05:50 Ibuprofen 800 Mg Tab PO 800 mg Q6H PRN Administration Pain, Moderate (4-6) Ketorolac Tromethamine 15 mg 06/16/21 14:00 Ketorolac 30 Mg/1 Ml Inj IV 06/21/21 13:59 Q6H PRN Pain, Mild (1-3) Ketorolac Tromethamine 30 mg 06/16/21 14:00 Ketorolac 30 Mg/1 Ml Inj IV 06/21/21 13:59 Q6H PRN Pain, Moderate (4-6) Loperamide HCl 2 mg 06/15/21 15:00 Loperamide 2 Mg Cap PO ONCE PRN give with Hemabate Magnesium Hydroxide 30 ml 06/16/21 13:15 06/17/21 15:56 Magnesium Hydroxide (Mom) Oral Liqd Udc PO 30 ml QHS PRN Administration Constip Unrelieved By Senna Mineral Oil 30 ml 06/15/21 22:00 Mineral Oil 30 Ml Oral Liqd PO QHS PRN Constipation Misoprostol 800 mcg 06/15/21 15:00 Misoprostol 200 Mcg Tab NC ONCE PRN Uterine Bleeding Morphine Sulfate 2 mg 06/16/21 14:00 Morphine 2 Mg/1 Ml Inj IV Q4H PRN Pain, Moderate (4-6) Morphine Sulfate 4 mg 06/16/21 14:00 06/16/21 14:57 Morphine 4 Mg/1 Ml Inj IV 4 mg Q4H PRN Administration Pain , Severe (7-10) Multi-Ingredient Ointment 1 applic 06/16/21 13:15 Lanolin/Zinc/Dimethicone (Lansinoh) 7 Gm TP PRN PRN dryness/cracking Naloxone HCl 0.1 mg 06/16/21 14:00 Naloxone 0.4 Mg/1 Ml Inj IV Q2MIN PRN Res Rate </= 8 or 02 SAT < 92% Ondansetron HCl 4 mg 06/15/21 15:00 Ondansetron 4 Mg/2 Ml Inj IV Q8H PRN Nausea And Vomiting Oxycodone/Acetaminophen 1 tab 06/16/21 14:30 06/17/21 23:19 Oxycodone /Acetaminophen 5-325mg Tab PO 1 tab Q6H PRN Administration Pain, Moderate (4-6) Oxytocin 10 unit 06/15/21 15:00 Oxytocin 10 Unit/1 Ml Inj IM ONCE PRN Uterine Bleeding Simethicone 80 mg 06/16/21 14:30 Simethicone 80 Mg Chew Tab PO Q6H PRN Gas pain Sodium Chloride 10 ml 06/16/21 14:00 Sodium Chloride 0.9% 10 Ml Flush Syringe IV 06/29/21 13:59 PRN NR Witch Silvia/Glycerin 1 each 06/16/21 14:00 Witch Silvia/ Glycerin Pad TP PRN PRN Hemorrhoids/cleansing/soothing
[2021-06-18 16:34] LABS: Basophils # (Auto) 0.1 K/mm3 (0.0-0.1); Basophils % (Auto) 0.3 % (0.0-1.8); Eosinophils # (Auto) 0.1 K/mm3 (0.0-0.4); Eosinophils % (Auto) 0.6 % (0.0-4.3); Hematocrit 26.3 % (30.3-42.9); Hemoglobin 8.8 gm/dl (10.1-14.3); Lymphocytes # (Auto) 3.6 K/mm3 (1.2-5.4); Lymphocytes % (Auto) 23.9 % (13.4-35.0); Mean Corpuscular HGB Conc 34 % (30-34); Mean Corpuscular Volume 85 fl (79-97); Monocytes # (Auto) 0.5 K/mm3 (0.0-0.8); Monocytes % (Auto) 3.6 % (0.0-7.3); Platelet Count 276 K/mm3 (140-440); Red Cell Distribution Width 15.7 % (13.2-15.2)
--- NOTE | 2021-06-18 18:24 | Ultrasound Report ---
ULTRASOUND PELVIS INDICATION / CLINICAL INFORMATION: retained products with worsening anemia. 1 day status post C-secti on. TECHNIQUE: Transabdominal. Duplex Color Doppler used: No. COMPARISON: Ultrasound dated 05/11/21 FINDINGS: UTERUS: - Appearance: Enlarged, uterus. - Size (cm): 17.9 x 7.3 x 11.5 - Endometrial Complex (if present): No significant abnormality.. Thickness in cm (if measured) = 1.0 - Mass or cyst: None. - Additional findings: None. RIGHT ADNEXA: Ovary not visualized. No adnexal mass or cyst. LEFT ADNEXA: Ovary not visualized. No adnexal mass or cyst. URINARY BLADDER: No significant abnormality. FREE FLUID: None. ADDITIONAL FINDINGS: None. IMPRESSION: 1. Enlarged uterus. No sonographic evidence for retained products of conception. Signer Name: Bee Ortega MD Signed: 06/18/2021 6:19 PM Workstation Name: [id number]
[2021-06-18] MEDS ORDERED: AMOXICILLIN/K CLAV 875/125MG TAB PO SCH (19:27)
[2021-06-18] MEDS: oxyCODONE /ACETAMINOPHEN 5-325MG TAB PO PRN (19:55)
[2021-06-19 08:28] LABS: Basophils % (Auto) 0.4 % (0.0-1.8); Eosinophils # (Auto) 0.1 K/mm3 (0.0-0.4); Eosinophils % (Auto) 1.1 % (0.0-4.3); Hematocrit 27.7 % (30.3-42.9); Hemoglobin 9.4 gm/dl (10.1-14.3); Lymphocytes # (Auto) 2.9 K/mm3 (1.2-5.4); Mean Corpuscular HGB Conc 34 % (30-34); Mean Corpuscular Volume 84 fl (79-97); Monocytes # (Auto) 0.3 K/mm3 (0.0-0.8); Monocytes % (Auto) 2.7 % (0.0-7.3); Platelet Count 313 K/mm3 (140-440); Red Blood Count 3.29 M/mm3 (3.65-5.03); Red Cell Distribution Width 15.9 % (13.2-15.2)
--- NOTE | 2021-06-19 09:46 | Progress Note ---
Assessment and Plan A: /postop day 3 S/P primary low transverse section. Anemia. P: Discharge patient home today. Discussed with patient /postop discharge instructions and warning signs. Advised patient to continue taking her vitamin and iron supplements at home. Advised patient to avoid lifting, housework, driving, stair climbing, tub baths (patient may take showers), driving. Advised patient to follow up at [facility] office in 1 week. Patient voiced understanding of all instructions. Subjective - Subjective Date of service: 06/19/21 Principal diagnosis: POD#3 C/Section Interval history: Patient requests discharge home today. Advised patient's nurse to change steri strips before patient leaves hospital today. Patient reports: appetite normal, voiding normally, pain well controlled, flatus, ambulating normally, no dizzy ambulation, no nauseated [place]: doing well Objective - Vital Signs Latest vital signs: Vital Signs Temp Pulse Resp BP Pulse Ox Pulse Ox 06/19/21 08:29 98 06/18/21 23:41 98.1 F 84 20 108/70 96 06/18/21 20:55 18 06/18/21 20:00 100 06/18/21 19:55 20 06/18/21 15:23 98.1 F 93 H 18 101/64 100 Intake and Output 06/18/21 06/19/21 06/19/21 23:59 07:59 15:59 Intake Total 120 360 Balance 120 360 Intake: Intake, Free Water 120 360 Other: # Voids Void 4 1 - Exam Cardiovascular: Present: Regular rate, No murmurs Lungs: Present: Clear to auscultation Abdomen: Present: normal appearance, soft, normal bowel sounds. Absent: distention, tenderness, guarding, rigidity Uterus: Present: normal, firm, fundal height below umbilicus. Absent: bogginess, tenderness Extremities: Absent: tenderness Incision: Present: intact - Labs Labs: Abnormal lab results 06/18/21 06/19/21 Range/Units 16:19 07:50 WBC 14.9 H 11.5 H (4.5-11.0) K/mm3 RBC 3.10 L 3.29 L (3.65-5.03) M/mm3 Hgb 8.8 L 9.4 L (10.1-14.3) gm/dl Hct 26.3 L 27.7 L (30.3-42.9) % RDW 15.7 H 15.9 H (13.2-15.2) % Seg Neutrophils % 71.6 H 70.8 H (40.0-70.0) % Seg Neutrophils # 10.6 H 8.1 H (1.8-7.7) K/mm3
--- NOTE | 2021-06-19 09:52 | Discharge Summary ---
Providers - Providers Date of Admission: 06/16/21 11:57 Date of discharge: 06/19/21 Attending physician: JULIANNA FERRER MD Primary care physician: JULIANNA FERRER MD Hospitalization Reason for admission: induction of labor Delivery: Procedure: primary low transverse Incision: intact Discharge diagnosis: IUP at term delivered Leonardo baby: female Pertinent studies: Labs Hospital course: Stable hospital course Condition at discharge: Good Disposition: 01 HOME / SELF CARE / HOMELESS - Discharge Diagnoses (1) Term delivered Status: Acute (2) Anemia Status: Acute Plan - Discharge Medications Prescriptions: Ibuprofen [Motrin] 600 mg PO Q8H PRN #60 tablet PRN Reason: Pain oxyCODONE /ACETAMINOPHEN [Percocet 5/325] 1 tab PO Q6HR PRN #20 tablet PRN Reason: Pain - Provider Discharge Summary Activity: routine, no sex for 6 weeks, no heavy lifting 4 weeks, no strenuous exercise Diet: routine Instructions: routine Additional instructions: Continue taking your vitamin and iron supplement at home. Follow up at [facility] office in 1 week. Call your doctor immediately for: * Fever > 100.5 * Heavy vaginal bleeding ( >1 pad per hour) * Severe persistent headache * Shortness of breath * Reddened, hot, painful area to leg or breast * Drainage or odor from incision. * Keep incision clean and dry at all times and follow doctor's instructions regarding bathing/showering - Follow up plan Follow up: JULIANNA FERRER MD [Primary Care Provider] - 7 Days Forms: [facility] Discharge Summary
[2021-06-19 19:32] VITALS: BP 111/67
== END 2021-06-19 12:20 | disposition home or self-care (01) | DRG 765 ==
LOC: TRG 11:22 → APU 11:24 → LD 17:27 → APU 06-16 11:51 → TRG 06-16 11:54 → APU 06-16 11:57 → OB 06-16 14:12 → APU 06-16 14:15 → OB 06-16 14:23
PROVIDERS: ADMIT Obstetrics & Gynecology; ATTEND Obstetrics & Gynecology
PROC: 10D00Z1 Extraction of Products of Conception, Low, Open Approach (ICD-10-PCS; principal; 2021-06-16)
PROC: 10H07YZ Insertion of Other Device into Products of Conception, Via Natural or Artificial Opening (ICD-10-PCS; 2021-06-16)
PROC: 10907ZC Drainage of Amniotic Fluid, Therapeutic from Products of Conception, Via Natural or Artificial Opening (ICD-10-PCS; 2021-06-16)
DX: O76 Abnormality in fetal heart rate and rhythm complicating labor and delivery (principal); O41.03X0 Oligohydramnios, third trimester, not applicable or unspecified; O72.1 Other immediate postpartum hemorrhage; O63.9 Long labor, unspecified; Z37.0 Single live birth; O99.214 Obesity complicating childbirth; Z3A.40 40 weeks gestation of pregnancy; O90.81 Anemia of the puerperium; O99.893 Other specified diseases and conditions complicating puerperium; R00.0 Tachycardia, unspecified
CPT/HCPCS: 36415; 76857; 85014; 85018; 85025; 85027; 86850; 86900; 86901; 88307; G0378; J3490; J7121; J7502; Q0162; J1100; J1750; J2210; J2270; J2405; J2590; J2765; J3105; J7030; J7120; U0003